=== PATIENT | female | born 1925 | race Caucasian/White ===

== ENCOUNTER 2017-01-02 09:47 | Emergency (ER) | payer BC ==
[~2017-01-02] VITALS: Ht 154.9 cm; Wt 56.2 kg
[2017-01-02 09:47] VITALS: BP_SYST 175
--- NOTE | 2017-01-02 09:47 | NUR ---
Placed in room 07. Placed on cardiac sonographer, blood pressure machine and pulse oximeter. To gown for exam. Side rails up.
--- NOTE | 2017-01-02 09:51 | NUR ---
Dr. Baca at bedside for evaluation
--- NOTE | 2017-01-02 09:57 | NUR ---
Pt complains of SOB and cough for 10 days, pt states she went to PCP and was put on a z pack but still has cough and congestion. Pt denies chest pain, does not have a fever. Pt is able gto communicate appropriately. No other injuries/complaints per pt or noted
--- NOTE | 2017-01-02 10:00 | NUR ---
X ray performed at bedside.
[2017-01-02 10:17] LABS: BASOPHILS % (AUTO) 0.2 % (0.0-2.0); EOSINOPHILS # (AUTO) 0.1 K/uL (0.0-0.4); EOSINOPHILS % (AUTO) 0.9 % (0.0-4.0); HEMATOCRIT 38.2 % (36-48); HEMOGLOBIN 12.6 g/dL (12.0-16.0); LYMPHOCYTES # (AUTO) 3.1 K/uL (1.0-5.5); LYMPHOCYTES % (AUTO) 27.7 % (20.5-51.5); MEAN CORPUSCULAR HEMOGLOBIN 30 pg (27-31); MEAN CORPUSCULAR HGB CONC 33 % (32-36); MEAN CORPUSCULAR VOLUME 91 fL (79.0-98.0); MONOCYTES # (AUTO) 0.8 K/uL (0.0-1.0); MONOCYTES % (AUTO) 6.8 % (1.7-9.3); NEUTROPHILS # (AUTO) 7.3 K/uL (1.8-7.7); NEUTROPHILS % (AUTO) 64.4 % (40.0-70.0); PLATELET COUNT (AUTO) 331 K/uL (130-430); RED CELL DISTRIBUTION WIDTH 12.9 % (9.0-15.0); WHITE BLOOD COUNT (AUTO) 11.3 K/uL (4.8-10.8)
[2017-01-02 10:26] LABS: ANION GAP 8 (5-15); CALCIUM 9.7 mg/dL (8.4-11.0); CHLORIDE 100 mmol/L (98-107); CREATININE 1.16 mg/dL (0.55-1.30); GLUCOSE 101 mg/dL (70-99); POTASSIUM 3.4 mmol/L (3.5-5.1); SODIUM SERUM 138 mmol/L (136-145); UREA NITROGEN, BLOOD 31 mg/dL (8-21)
[2017-01-02 10:27] LABS: INR 0.9 (0.8-1.2); PROTHROMBIN TIME 10.3 SECS (9.5-12.5)
--- NOTE | 2017-01-02 10:30 | NUR ---
Pt is resting comfortably with no noted distress or discomfort.
[2017-01-02 10:31] LABS: ALANINE AMINOTRANSFERASE 30 U/L (12-78); ALBUMIN 3.9 g/dL (3.4-4.8); ASPARTATE AMINOTRANSFERASE 30 U/L (10-37); CREATINE KINASE, TOTAL 73 U/L (26-192); TOTAL BILIRUBIN 0.6 mg/dL (0.0-1.0); TOTAL PROTEIN, SERUM 7.6 g/dL (6.4-8.3)
--- NOTE | 2017-01-02 11:00 | NUR ---
Pt has no complaints of pain at this time, no noted SOB
--- NOTE | 2017-01-02 11:40 | NUR ---
Patient given written and verbal discharge instructions and verbalizes understanding. ER MD Dr. Baca discussed with patient the results and treatment provided. Patient in stable condition. ID arm band removed. Rx of albuterol sudafed given. Patient educated on pain management and to follow up with PMD. Pain Scale 0/10 Opportunity for questions provided and answered.
[2017-01-02 11:49] VITALS: BP_SYST 150
== END 2017-01-02 11:40 | disposition home or self-care (01) ==
LOC: SED 09:47
DX: J40 Bronchitis, not specified as acute or chronic (principal); I10 Essential (primary) hypertension
CPT/HCPCS: 36415; 71010; 80053; 82550-TC; 83880; 84484; 85025; 85610-TC; 85730-TC; 93005; 99285